=== PATIENT | female | born 1965 | race Caucasian/White ===

== ENCOUNTER 2024-11-25 13:20 | Emergency (ER) | payer SELFPAY ==
[2024-11-25 13:36] VITALS: BP 118/75; PULSE 93; TEMP 36.7; O2SAT 100; BMI 26.8
--- NOTE | 2024-11-25 13:49 | ED.GENADUL1 ---
HPI HPI - General Adult General Chief complaint: Wound/Laceration Stated complaint: STEPPED ON A WILIAM NAIL POSSIBLY SEPSIS Time Seen by Provider: 11/25/24 13:21 Source: patient Mode of arrival: walk-in Limitations: no limitations History of Present Illness HPI narrative: Patient is a 58-year-old female who presents to the emergency department at the recommendation of her primary care office in [place]. She states she stepped on a nail in the plantar aspect of her left foot 3 days ago, her PCP office started her on clindamycin and she had outpatient x-rays yesterday which were unremarkable. Her tetanus is up-to-date. She states yesterday she felt as though her left foot was very swollen into the left calf and today she is noticing pain in the left hip. She has not had any redness or red streaking, no wounds or drainage. No fevers or vomiting. She states she called her PCP office for an increase in pain today and was told to come to the ER as she may be septic. She states she was wearing tennis shoes at the time of the puncture wound Related Data Home Medications ?Medication ?Instructions ?Recorded ?Confirmed estradiol 0.05 mg/24 hr weekly 1 patch transdermal .weekly 11/25/24 11/25/24 transdermal patch pantoprazole 40 mg tablet,delayed 40 mg PO BID 11/25/24 11/25/24 release venlafaxine 75 mg capsule,extended 75 mg PO DAILY 11/25/24 11/25/24 release 24 hr Previous Rx's ?Medication ?Instructions ?Recorded cephalexin 500 mg capsule 500 mg PO Q8H 10 days #30 caps 11/25/24 ciprofloxacin HCl 500 mg tablet 500 mg PO Q12H 10 days #20 tabs 11/25/24 ketorolac 10 mg tablet 10 mg PO TID PRN pain #10 tabs 11/25/24 Allergies Allergy/AdvReac Type Severity Reaction Status Date / Time Penicillins AdvReac Mild Rash Verified 11/25/24 13:36 Sulfa (Sulfonamide AdvReac Mild Hives Verified 11/25/24 13:36 Antibiotics) Opioid HPI Opioid Management Most Recent Opioid Data: Last Pain Scale 7 11/25/24 14:11 11/25/24 Last MAR Pain Assessment 11/25/24 14:01 Review of Systems ROS Constitutional Denies: fever or chills Ears, nose, mouth, and throat Denies: throat pain or nasal congestion Cardiovascular Denies: chest pain Respiratory Denies: shortness of breath or cough Gastrointestinal Denies: nausea or vomiting Integumentary/Breast Denies: rash Neurological Denies: numbness in extremities or weakness in extremities Hematologic/Lymphatic Denies: easy bruising or easy bleeding Exam Narrative Exam Narrative: Gen.: Awake, alert, in no distress Head: Normocephalic, atraumatic ENT: Moist mucous membranes Respiratory: No respiratory distress Extremities: Moves extremities equally, left lower extremity with no appreciable swelling. No redness noted. No bony tenderness. Well-healing puncture wound to the plantar aspect of the left foot with no surrounding redness or fluctuance. Normal flexion and extension of the toes Psych: Normal mood and affect Neuro: No focal neuro deficit Skin: Warm, dry, intact Constitutional Vital Signs, click to edit/add: Last Vital Signs Temp 98.1 F 11/25/24 13:36 Pulse 93 H 11/25/24 13:36 Resp 18 11/25/24 13:36 BP 118/75 11/25/24 13:36 Pulse Ox 100 11/25/24 13:36 O2 Del Method Room Air 11/25/24 13:36 Course Vital Signs Vital signs: Vital Signs Temperature 98.1 F 11/25/24 13:36 Pulse Rate 93 H 11/25/24 13:36 Respiratory Rate 18 11/25/24 13:36 Blood Pressure 118/75 11/25/24 13:36 Pulse Oximetry 100 11/25/24 13:36 Oxygen Delivery Method Room Air 11/25/24 13:36 Temperature 98.1 F 11/25/24 13:36 Pulse Rate 93 H 11/25/24 13:36 Respiratory Rate 18 11/25/24 13:36 Blood Pressure 118/75 11/25/24 13:36 Pulse Oximetry 100 11/25/24 13:36 Oxygen Delivery Method Room Air 11/25/24 13:36 Medical Decision Making MDM Narrative Medical decision making narrative: This patient has a well-healing puncture wound to the plantar aspect of the left foot with no appreciable abscess or red streaking. No lymphangitis appreciated. She is hemodynamically stable with no tachycardia, hypotension or fevers. She has no systemic complaints consistent with sepsis and has a benign exam, suspect her hip pain is musculoskeletal secondary to walking on a puncture wound for the last several days. She had x-rays of the left foot yesterday and her tetanus is up-to-date. She was instructed to stop the clindamycin as this antibiotic will not cover for Pseudomonas. She was made aware of the need to change to different antibiotics for coverage. NSAIDs given for discomfort. Ultrasound of the leg with no evidence of acute process. Patient was given education and reassurance. Follow-up with PCP and return to the emergency department if symptoms change or worsen. SUPERVISED APC VISIT, PHYSICIAN ATTESTATION: Based on the medical record the care appears appropriate. ? Medical Records Medical records reviewed: Yes I reviewed the patient's medical records Lab Data Lab results reviewed: Yes I reviewed the patient's lab results Labs: Lab Results 11/25/24 Range/Units 14:16 WBC 12.7 H (4.0-11.0) 10^3/uL RBC 4.21 (4.20-5.40) 10^6/uL Hgb 11.3 L (12.0-16.0) g/dL Hct 35.2 L (36.0-48.0) % MCV 83.6 (81.0-99.0) fL MCH 26.8 (26.7-34.0) pg MCHC 32.1 (29.9-35.2) g/dL RDW 14.6 (11.0-15.0) % Plt Count 327 (150-450) 10^3/uL MPV 10.8 (9.5-13.5) fL Neut % (Auto) 76.7 H (43.0-75.0) % Lymph % (Auto) 16.1 L (20.5-60.0) % Crawford % (Auto) 6.5 (1.7-12.0) % Eos % (Auto) 0.1 L (0.9-7.0) % Baso % (Auto) 0.3 (0.2-2.0) % Neut # (Auto) 9.7 H (1.4-6.5) 10^3/uL Lymph # (Auto) 2.0 (1.2-3.8) 10^3/uL Crawford # (Auto) 0.8 (0.3-0.8) 10^3/uL Eos # (Auto) 0.0 (0.0-0.7) 10^3/uL Baso # (Auto) 0.0 (0.0-0.1) 10^3/uL Abs Immat Gran (auto) 0.04 H (0.00-0.03) 10^3/uL Imm/Tot Granulo (auto) 0.3 (0.0-0.5) % ESR 18 (<=30) mm/hr Sodium 139 (136-145) mmol/L Potassium 4.0 (3.5-5.1) mmol/L Chloride 105 (98-107) mmol/L Carbon Dioxide 28.0 (21.0-32.0) mmol/L Anion Gap 10.0 BUN 19.0 H (7.0-18.0) mg/dL Creatinine 0.98 (0.55-1.02) mg/dL Est GFR ( Amer) >60 (>=60 mL/min/1.73m^2) Est GFR (Non-Af Amer) 59 L (>=60 mL/min/1.73m^2) BUN/Creatinine Ratio 19.4 Glucose 76 (74-106) mg/dL Lactate 1.2 (0.4-2.0) mmol/L Calcium 9.1 (8.5-10.1) mg/dL C-Reactive Protein 2.61 H (<=0.50) mg/dL Imaging Data Venous US: Attestation: I have reviewed the pertinent imaging results. Discharge Plan Discharge Chief Complaint: Wound/Laceration Clinical Impression: Puncture wound Patient Disposition: Home, Self-Care Time of Disposition Decision: 15:09 Condition: Good Prescriptions / Home Meds: New ciprofloxacin HCl 500 mg tablet 500 mg PO Q12H 10 Days Qty: 20 0RF ketorolac 10 mg tablet 10 mg PO TID PRN (Reason: pain) Qty: 10 0RF cephalexin 500 mg capsule 500 mg PO Q8H 10 Days Qty: 30 0RF No Action pantoprazole 40 mg tablet,delayed release (DR/EC) 40 mg PO BID venlafaxine 75 mg capsule,extended release 24hr 75 mg PO DAILY estradiol 0.05 mg/24 hr patch weekly 1 patch transdermal .weekly Print Language: [place] Instructions: Puncture Wound in the Foot (ED) Additional Instructions: Please stop clindamycin Referrals: DEMETRIO CARTER [Primary Care Provider] - 1 week
[2024-11-25] MEDS: KETOROLAC TROMETHAMINE 10 MG TABLET PO (14:01)
[2024-11-25 14:28] LABS: Basophils Percent Auto 0.3 % (0.2-2.0); Eosinophils Percent Auto 0.1 % (0.9-7.0); Hematocrit 35.2 % (36.0-48.0); Hemoglobin 11.3 g/dL (12.0-16.0); Immature Granulocytes Abs Auto 0.04 10^3/uL (0.00-0.03); Immature Granulocytes Pct Auto 0.3 % (0.0-0.5); Lymphocytes Percent Auto 16.1 % (20.5-60.0); Mean Corpuscular HGB Conc 32.1 g/dL (29.9-35.2); Mean Corpuscular Hemoglobin 26.8 pg (26.7-34.0); Mean Corpuscular Volume 83.6 fL (81.0-99.0); Mean Platelet Volume 10.8 fL (9.5-13.5); Monocytes Absolute Auto 0.8 10^3/uL (0.3-0.8); Monocytes Percent Auto 6.5 % (1.7-12.0); Neutrophils Absolute Auto 9.7 10^3/uL (1.4-6.5); Neutrophils Percent Auto 76.7 % (43.0-75.0); Platelet Count 327 10^3/uL (150-450); Red Blood Count 4.21 10^6/uL (4.20-5.40); Red Cell Distribution Width 14.6 % (11.0-15.0); White Blood Count 12.7 10^3/uL (4.0-11.0)
[2024-11-25 14:38] LABS: Erythrocyte Sedimentation Rate 18 mm/hr (<=30)
[2024-11-25 14:41] LABS: BUN Creatinine Ratio 19.4; C Reactive Protein 2.61 mg/dL (<=0.50); Calcium 9.1 mg/dL (8.5-10.1); Chloride 105 mmol/L (98-107); Estimated GFR (African America >60 (>=60 mL/min/1.73m^2); Estimated GFR (Non-African Ame 59 (>=60 mL/min/1.73m^2); Glucose 76 mg/dL (74-106); Sodium 139 mmol/L (136-145)
[2024-11-25 14:54] LABS: Lactate/Lactic Acid 1.2 mmol/L (0.4-2.0)
[2024-11-25 15:12] VITALS: PULSE 79; O2SAT 100
== END 2024-11-25 15:13 | disposition home or self-care (01) ==
PROVIDERS: Physician Assistant; Emergency Provider Emergency Medicine; PCP Family Medicine
DX: S91.332A Puncture wound without foreign body, left foot, initial encounter (principal); M25.552 Pain in left hip; W45.0XXA Nail entering through skin, initial encounter; R22.42 Localized swelling, mass and lump, left lower limb
CPT/HCPCS: 36415; 80048; 83605; 85025; 85652; 86140; 93971; 99285